=== PATIENT | female | born 1990 ===

== ENCOUNTER → 2018-10-19 | Outpatient (CLI) | payer OTHER ==
[~2018-10-19] MED LIST: ACIDOPHILUS PROB1 MG PO; ALPR-429 PO; AMOX-559 PO; CHOL10005 PO; CRAN200C5 PO; DOCU-416 PO; ETON68IM SQ; OMEP40CA48 PO; ONDA8TAB91 PO; RANI150C17 PO; TOPI-23 PO; VIT-7 PO; Work Note
[2018-10-19 11:27] LABS: PLATELET COUNT, AUTOMATED 257 K/uL (150-450)
== END ==
LOC: LAB 11:06
PROVIDERS: ATTEND Emergency Medicine
DX: R10.12 Left upper quadrant pain (principal)
CPT/HCPCS: 81001; 82040; 82150; 82247; 82310; 82374; 82435; 82565; 82947; 83690; 84075; 84132; 84155; 84295; 84450; 84460; 84520; 85025; 87338

== ENCOUNTER → 2018-12-18 | Outpatient (CLI) | payer OTHER ==
[~2018-12-18] MED LIST changes: +CYAN500T38 PO; +ESC10 PO; +ESCI20TA8 PO
== END ==
LOC: LAB 13:32
PROVIDERS: ATTEND Emergency Medicine
DX: F41.9 Anxiety disorder, unspecified (principal); E66.3 Overweight
CPT/HCPCS: 36415; 82306; 82607; 84443

== ENCOUNTER → 2018-12-31 | Outpatient (CLI) | payer OTHER ==
[~2018-12-31] MED LIST changes: -CYAN500T38 PO; +CYAN500T39 PO
== END ==
LOC: AUD 13:59
PROVIDERS: ATTEND Otolaryngology
DX: H71.92 Unspecified cholesteatoma, left ear (principal)
CPT/HCPCS: 92553; 92567

== ENCOUNTER 2019-01-03 18:13 | Emergency (ER) | payer OTHER ==
--- NOTE | 2019-01-03 18:22 | ER Report ---
History and Physical Time Seen By MD: 18:22 Hx. of Stated Complaint: PT PRESENSWITH H/A FOR 30 MIN. HX OF MIGRAINES, BU THIS IS DIFFERENT, WITH BLURRED AND DOUBLE VISION, FREDI BODY NUMBNESS HPI/ROS CHIEF COMPLAINT: Headache, numbness HISTORY OF PRESENT ILLNESS: 28-year-old female patient presents to emergency room with complaint of headache and numbness to the right side. Patient states she woke up this afternoon and was feeling different. She states she has a headache which is not like her typical migraine. She states she's been nauseated, but denies having any vomiting. Patient states she did take some ibuprofen, which seemed to make her headache worse. She denies any improvement. Patient states that she has moved into a new house. There has been a mouse problem. She states that she had a friend help her move in, she states that neither her friend or her significant other having any symptoms. REVIEW OF SYSTEMS: Respiratory: No cough, no dyspnea. Cardiovascular: No chest pain, no palpitations. Gastrointestinal: No vomiting, no abdominal pain. Musculoskeletal: No back pain. Allergies: Coded Allergies: No Known Drug Allergies (Unverified , 11/01/16) Home Meds Active Scripts Escitalopram Oxalate (ESCITALOPRAM OXALATE) 20 Mg Tablet, 20 MG PO QDAY, #90 TAB Prov:OWEN CHATTERJEE MD 12/18/18 Alprazolam (XANAX) 0.5 Mg Tablet, 1 TAB PO TID PRN for ANXIETY, #30 TAB Prov:SAFIA LOPEZ DNP, ARCHITECT [employer] 11/06/18 Topiramate (TOPIRAMATE) 25 Mg Tablet, 1 TAB PO DAILY, #90 TAB 3 Refills Prov:OEWN CHATTERJEE MD 09/20/17 Reported Medications [Nexlanon] No Conflict Check 01/03/19 Folic Acid (Folic Acid) 0.8 Mg Capsule 01/03/19 Ranitidine Hcl (ZANTAC) 150 Mg Tablet, 150 MG PO ONCE, TAB 01/03/19 Cholecalciferol (Vitamin D3) (VITAMIN D) 1,000 Unit Tablet, 1000 UNIT PO 01/03/19 Cyanocobalamin (Vitamin B-12) (VITAMIN B-12) 500 Mcg Tablet, 500 MCG PO DAILY 12/19/18 Past Medical/Surgical History Patient has a past medical history of ulcer, a call use, anxiety. Patient has a surgical history of left ear surgery 3. Reviewed Nurses Notes: Yes Smoking Status: Never Smoker, Former Smoker Constitutional Vital Sign - Last 24 Hours 01/03/19 18:16 Temp 98.6 Pulse 84 Resp 20 B/P (MAP) 137/84 Pulse Ox 96 O2 Delivery Room Air Physical Exam General Appearance: The patient is alert, has no immediate need for airway protection and no current signs of toxicity. Eyes: Pupils equal and round no injection. Extraocular movements intact. Respiratory: Chest is non tender, lungs are clear to auscultation. Cardiac: regular rate and rhythm Gastrointestinal: Abdomen is soft and non tender, no masses, bowel sounds normal. Musculoskeletal: Neck: Neck is supple and non tender. Extremities have full range of motion and are non tender. Skin: No rashes or lesions. Neuro: Patient is alert and oriented 4, cranial nerves II-12 grossly intact. Patient had good sensation sharp and dull to the right upper extremity. DIFFERENTIAL DIAGNOSIS: After history and physical exam differential diagnosis was considered for headache including but not limited to subarachnoid hemorrhage , migraine headache, tension headache and infectious causes such as meningitis, pharyngitis and sinusitis. Medical Decision Making Data Points Result Diagram: 01/03/19 1835 01/03/19 1835 Laboratory Hematology Test 01/03/19 18:35 Red Blood Count 4.79 M/uL (4.17-5.56) Mean Corpuscular Volume 94.4 fL (80.0-96.0) Mean Corpuscular Hemoglobin 31.8 pg (26.0-33.0) Mean Corpuscular Hemoglobin Concent 33.7 g/dL (32.0-36.0) Red Cell Distribution Width 13.3 % (11.5-14.5) Mean Platelet Volume 8.8 fL (7.2-11.1) Neutrophils (%) (Auto) 60.5 % (39.4-72.5) Lymphocytes (%) (Auto) 27.3 % (17.6-49.6) Monocytes (%) (Auto) 8.4 % (4.1-12.4) Eosinophils (%) (Auto) 3.4 % (0.4-6.7) Basophils (%) (Auto) 0.4 % (0.3-1.4) Nucleated RBC Relative Count (auto) 0.0 /100WBC Neutrophils # (Auto) 5.3 K/uL (2.0-7.4) Lymphocytes # (Auto) 2.4 K/uL (1.3-3.6) Monocytes # (Auto) 0.7 K/uL (0.3-1.0) Eosinophils # (Auto) 0.3 K/uL (0.0-0.5) Basophils # (Auto) 0.0 K/uL (0.0-0.1) Nucleated RBC Absolute Count (auto) 0.00 K/uL Erythrocyte Sedimentation Rate 9 mm/HOUR (0-20) Sodium Level 143 mmol/L (137-145) Potassium Level 3.7 mmol/L (3.5-5.0) Chloride Level 107 mmol/L (98-107) Carbon Dioxide Level 22 mmol/L (22-31) Blood Urea Nitrogen 7 mg/dl (7-18) Creatinine 0.90 mg/dl (0.52-1.04) Glomerular Filtration Rate Calc > 60.0 Random Glucose 79 mg/dl (75-110) Calcium Level 8.9 mg/dl (8.4-10.2) Total Bilirubin 0.8 mg/dl (0.2-1.3) Aspartate Amino Transf (AST/SGOT) 24 U/L (0-35) Alanine Aminotransferase (ALT/SGPT) 29 U/L (0-56) Alkaline Phosphatase 77 U/L (0-126) C-Reactive Protein < 0.5 mg/dl (<1.0) Total Protein 8.0 g/dl (6.3-8.2) Albumin 4.7 g/dl (3.5-5.0) Human Chorionic Gonadotropin, Qual Negative (NEGATIVE) Chemistry Test 01/03/19 18:35 White Blood Count 8.8 k/uL (4.5-11.0) Red Blood Count 4.79 M/uL (4.17-5.56) Hemoglobin 15.2 g/dL (12.0-16.0) Hematocrit 45.2 % (34.0-47.0) Mean Corpuscular Volume 94.4 fL (80.0-96.0) Mean Corpuscular Hemoglobin 31.8 pg (26.0-33.0) Mean Corpuscular Hemoglobin Concent 33.7 g/dL (32.0-36.0) Red Cell Distribution Width 13.3 % (11.5-14.5) Platelet Count 270 K/uL (150-450) Mean Platelet Volume 8.8 fL (7.2-11.1) Neutrophils (%) (Auto) 60.5 % (39.4-72.5) Lymphocytes (%) (Auto) 27.3 % (17.6-49.6) Monocytes (%) (Auto) 8.4 % (4.1-12.4) Eosinophils (%) (Auto) 3.4 % (0.4-6.7) Basophils (%) (Auto) 0.4 % (0.3-1.4) Nucleated RBC Relative Count (auto) 0.0 /100WBC Neutrophils # (Auto) 5.3 K/uL (2.0-7.4) Lymphocytes # (Auto) 2.4 K/uL (1.3-3.6) Monocytes # (Auto) 0.7 K/uL (0.3-1.0) Eosinophils # (Auto) 0.3 K/uL (0.0-0.5) Basophils # (Auto) 0.0 K/uL (0.0-0.1) Nucleated RBC Absolute Count (auto) 0.00 K/uL Erythrocyte Sedimentation Rate 9 mm/HOUR (0-20) Glomerular Filtration Rate Calc > 60.0 Calcium Level 8.9 mg/dl (8.4-10.2) Total Bilirubin 0.8 mg/dl (0.2-1.3) Aspartate Amino Transf (AST/SGOT) 24 U/L (0-35) Alanine Aminotransferase (ALT/SGPT) 29 U/L (0-56) Alkaline Phosphatase 77 U/L (0-126) C-Reactive Protein < 0.5 mg/dl (<1.0) Total Protein 8.0 g/dl (6.3-8.2) Albumin 4.7 g/dl (3.5-5.0) Human Chorionic Gonadotropin, Qual Negative (NEGATIVE) EKG/Imaging Imaging CT Head without contrast Indication: Migraine headache. Comparison: None available Technique: Axial CT images were obtained through the brain from the skull base to the vertex without administration of IV contrast. Reformatted coronal and sagittal images were also obtained. One of the following dose optimization techniques was utilized in the performance of this exam: automated exposure control; adjustment of the mA and/or kV according to the patient's size; or use of an iterative reconstruction technique. Specific details can be referenced in the facility's radiology CT exam operational policy. Findings: No evidence of mass, mass effect, or midline shift. No acute intracranial hemorrhage or acute territorial infarction. No extra-axial fluid collection or hydrocephalus. No abnormal density. Herr/white matter differentiation appears normal. There is a prominent CFS space seen in the inferior left temporal fossa. This was seen on previous CT scan sinuses on 07/06/2017. No associated sequelae not significantly changed. Bony structures show no fractures or lesions. The right mastoid air cells are clear. Left mastoid air cells show previous intervention without focal abnormality. The visualized paranasal sinuses are clear. IMPRESSION: 1. No acute intracranial abnormality. 2. There is a stable prominent CFS space and the inferior left temporal fossa. Arachnoid cyst versus prominent CFS space. Report Dictated By: Bronson Menjivar at 01/03/2019 8:06 PM Report E-Signed By: Bronson Menjivar at 01/03/2019 8:14 PM ED Course/Re-evaluation ED Course Patient is admitted to examined, history and physical were obtained. Differential diagnoses were considered. On examination lungs are clear, heart is regular, abdomen soft nontender. Cranial nerves II through XII grossly intact. CT scan of the head was done which was negative. A CBC, CMP, ESR, CRP, hCG were done. Lab results were negative. Patient did complain of some nausea and was treated with Zofran 4 mg. I discussed findings with patient. At that time we did go ahead and treat her with 50 mg of Toradol, 30 mg of Norflex, 25 mg of Benadryl and 12.5 mg of Phenergan. On reevaluation patient states the headache is resolved. She is sleeping, she feels that she is rating her home at this time and go to sleep. We will go ahead and discharge her home. She is follow-up with primary care provider in a week. She is return to emergency room if condition worsens. Patient verbalized understanding and agreement with plan. Decision to Disposition Date: Jan 03, 2019 Decision to Disposition Time: 21:32 Depart Departure Latest Vital Signs Vital Signs Date Time Temp Pulse Resp B/P (MAP) Pulse Ox O2 Delivery O2 Flow Rate FiO2 01/03/19 18:16 98.6 84 20 137/84 96 Room Air Impression: Primary Impression: Migraine Condition: Improved Disposition: HOME OR SELF-CARE Referrals: OWEN CHATTERJEE MD (PCP) Patient Instructions: Migraine Headache (ED) Additional Instructions: Increase fluid intake. Get plenty of rest. Watch for triggers for your migraines. Continue with your current medications. Follow up with your primary care provider in the next week. Return to the ER if condition worsens. Problem Qualifiers Primary Impression: Migraine Migraine type: without aura Status migrainosus presence: without status migrainosus Intractability: not intractable Qualified Codes: G43.009 - Migraine without aura, not intractable, without status migrainosus LUIS MIGUEL KILPATRICK ARCHITECT MARINE Jan 03, 2019 18:22
[2019-01-03] MEDS ORDERED: CHOL100052 PO (18:23)
[2019-01-03] MEDS ORDERED: FOLI0.8C (18:23)
[2019-01-03] MEDS ORDERED: ETONOGESTREL (18:23)
[2019-01-03] MEDS ORDERED: RANI-54 PO (18:23)
[2019-01-03] MEDS ORDERED: NS(*) 0.9% 1000 ML BAG 1,000 ML IV ONE (18:32)
[2019-01-03 18:46] LABS: PLATELET COUNT, AUTOMATED 270 K/uL (150-450)
[2019-01-03] MEDS ORDERED: ONDANSETRON 4 MG/2 ML VIAL IVP ONE (19:35)
--- NOTE | 2019-01-03 20:19 | RADIOLOGY IMAGING REPORT ---
FACILITY: [facility] - [place], [place] PATIENT NAME: Veena Anne : 1990 MR: [id number] V: [id number] EXAM DATE: ORDERING PHYSICIAN: LUIS MIGUEL KILPATRICK TECHNOLOGIST: Location: [facility] - [place] Patient: Veena Anne : 1990 Visit/Account:[id number] Date of Sevice: 01/03/2019 CT Head without contrast Indication: Migraine headache. Comparison: None available Technique: Axial CT images were obtained through the brain from the skull base to the vertex without administration of IV contrast. Reformatted coronal and sagittal images were also obtained. One of the following dose optimization techniques was utilized in the performance of this exam: autom ated exposure control; adjustment of the mA and/or kV according to the patient's size; or use of an i terative reconstruction technique. Specific details can be referenced in the facility's radiology CT exam operational policy. Findings: No evidence of mass, mass effect, or midline shift. No acute intracranial hemorrhage or acute territorial infarction. No extra-axial fluid collection or hydrocephalus. No abnormal density. Herr/white matter differentiat ion appears normal. There is a prominent CFS space seen in the inferior left temporal fossa. This was seen on previous CT scan sinuses on 07/06/2017. No associated sequelae not significantly changed. Bony structures show no fractures or lesions. The right mastoid air cells are clear. Left mastoid air cells show previous intervention without focal abnormality. The visualized paranasal sinuses are clear. IMPRESSION: 1. No acute intracranial abnormality. 2. There is a stable prominent CFS space and the inferior left temporal fossa. Arachnoid cyst versus prominent CFS space. Report Dictated By: Bronson Menjivar at 01/03/2019 8:06 PM Report E-Signed By: Bronson Menjivar at 01/03/2019 8:14 PM [id number]
[2019-01-03] MEDS ORDERED: KETOROLAC 15 MG/ML VIAL IVP ONE (20:45)
[2019-01-03] MEDS ORDERED: ORPHENADRINE 60MG/2ML INJ IVP ONE (20:45)
[2019-01-03] MEDS: diphenhydrAMINE 50 MG/ML VIAL IVP ONE ×2 (20:45→20:54)
[2019-01-03] MEDS ORDERED: PROMETHAZINE 25 MG/ML 1 ML AMP IVP ONE (20:55)
[2019-01-03 21:30] VITALS: BP 122/75
== END 2019-01-03 21:43 | disposition home or self-care (01) ==
LOC: ER 18:22
DX: G43.009 Migraine without aura, not intractable, without status migrainosus (principal)
CPT/HCPCS: 70450; 84703; 85025; 85651; 86140; 96361; 96374; 96375; 99284; J1200; J1885; J2360; J2405; J2550; J7030; 82040; 82247; 82310; 82374; 82435; 82565; 82947; 84075; 84132; 84155; 84295; 84450; 84460; 84520

== ENCOUNTER → 2019-01-14 | Outpatient (CLI) | payer OTHER ==
[~2019-01-14] MED LIST changes: +CHOL100052 PO; +ETONOGESTREL; +FOLI0.8C; +RANI-54 PO
--- NOTE | 2019-01-14 14:12 | RADIOLOGY IMAGING REPORT ---
FACILITY: [facility] PATIENT NAME: Veena Anne : 1990 MR: [id number] V: [id number] EXAM DATE: ORDERING PHYSICIAN: JAMSHID SINGH TECHNOLOGIST: Location: [facility] - [place] Patient: Veena Anne : 1990 Visit/Account:[id number] Date of Sevice: 01/14/2019 EXAMINATION: CT IAC'S W/O INDICATION: Hearing loss COMPARISON STUDY: July 06, 2017 TECHNIQUE: Multiple thin cut axial images were obtained through the temporal bones bilaterally. Coron al 2-dimensional reconstructions were made from the original data set. Sagittal reconstructions were also obtained. One of the following dose optimization techniques was utilized in the performance of this exam: Autom ated exposure control; adjustment of the mA and/or kV according to the patient's size; or use of an i terative reconstruction technique. Specific details can be referenced in the facility's radiology C T exam operational policy. Right side: On the right, the external auditory canal is unremarkable. The mastoid air cells are unopacified. The tympanic membrane is not thickened. The scutum is sharp. The middle ear is unopacified. The ossicles are unremarkable. The horizontal facial nerve canal is no t dehiscent. The cochlear and vestibular structures are unremarkable. The internal auditory canal is unremarkable. The vestibular and cochlear aqueducts are unremarkable. Left side: The left external auditory canal is unremarkable. The patient is status post left mastoidectomy. The patient is status post resection of the scutum. Th e tympanic membrane is not thickened. The myringotomy tube seen on the previous study is no longer pr esent. The tympanic membrane is not thickened. The middle ear is unopacified. Only the long process of the malleus is present. The other ossicles ar e not present. This is unchanged. The horizontal facial nerve canal is not dehiscent. The vestibular and cochlear structures are unremarkable. The internal auditory canal is unremarkable. The vestibular and cochlear aqueducts are unremarkable. IMPRESSION: Patient status post left mastoidectomy. There is extensive disruption of the left-sided o ssicles. The previously identified left myringotomy tube is no longer present. The left middle ear is unopacified. The right petrous apex is unremarkable in appearance. Report Dictated By: Jet Yi at 01/14/2019 1:57 PM Report E-Signed By: Jet Yi at 01/14/2019 2:06 PM WSN:[id number]
== END ==
LOC: CT 00:33
PROVIDERS: ATTEND Otolaryngology
DX: H95.192 Other disorders following mastoidectomy, left ear (principal)
CPT/HCPCS: 70480